=== PATIENT | female | born 1980 | race Caucasian/White ===

== ENCOUNTER 2017-09-08 15:40 | Inpatient (IN) | payer BC ==
[~2017-09-08] VITALS: Ht 167.6 cm; Wt 97.1 kg
[~2017-09-08 15:40] MED LIST: ADIPEX-P37.5 M1 PO
[2017-09-08 16:25] LABS: HEMATOCRIT 35.8 % (36.0-48.0); MCH 31.2 pg (26.0-34.0); MCHC 33.5 g/dL (31.0-37.0); MEAN PLATELET VOLUME 12.4 fL (7.4-10.4); RBC 3.85 10x6/uL (4.00-5.40); RDW 13.8 % (11.5-14.5); WBC 8.5 10x3/uL (4.8-10.8)
[2017-09-08 16:44] VITALS: BP 131/78; BMI 34.6
[2017-09-08 17:32] LABS: APPEARANCE HAZY (CLEAR); BACTERIA MODERATE /hpf (NONE SEEN); BILIRUBIN NEGATIVE (NEGATIVE); COLOR DK YELLOW (YELLOW); GLUCOSE NEGATIVE (NEGATIVE); KETONE LARGE mg/dL (NEGATIVE); MUCUS >1+ /lpf (NONE SEEN); NITRITE NEGATIVE (NEGATIVE); PROTEIN NEGATIVE (NEGATIVE); RED CELLS - URINE OCC /hpf (0-5); UROBILINOGEN NORMAL (NORMAL)
[2017-09-09 07:50] VITALS: BP 118/72
--- NOTE | 2017-09-09 07:50 | NUR ---
RECEIVED PT SITTING UP IN BED. AWAKE. AAO X4. VSS. HRRR WITHOUT AUDIBLE MURMUR. BBS CLEAR. BS X 4. ABDOMEN SOFT/NON-DISTENDED. FUNDUS FIRM AT U/U. RUBRA LOCHIA MOD AMT. NO CLOTS EXPRESSED. NEG HOMANS' SIGN. PPP. NO EDEMA NOTED TO BLE. SL TO LEFT WRIST. SITE CLEAR. PT DENIES PAIN OR NEEDS. SR UPX 2. CALL LIGHT IN REACH. REGULAR DIET SERVED.
--- NOTE | 2017-09-09 07:58 | NUR ---
800 ML OF BLOOD-TINGED URINE EMPTIED FROM SPECIPAN.
--- NOTE | 2017-09-09 09:45 | NUR ---
PT TRANSFERED VIA AMBULATORY TO ROOM 1273. PT TO BR TO VOID. SHARON ACTIVITY WELL.
[2017-09-09 10:34] VITALS: Ht 167.6 cm; Wt 97.1 kg
--- NOTE | 2017-09-09 11:01 | NUR ---
LE@8:25 Devora Bravo 09/09/17 S: Patient states, 'This is my 3rd baby, I did try before but things didn't go well. So I formula fed. I was able to feed baby earlier for a little bit, he does suck for a few minutes but then come off the breast, he just keeps doing this same process. " O: Patient sitting up in bed attempting to breastfeed infant in cradle position, sleeping at the breast. Offered suggestions on how to wake infant, observed patient attempting to stimulate to wake for feeding. Explained breastmilk composition and different position she may try to hold infant for feeding. Infant awake and alert, would attempt to latch but then would fall back asleep. Explained benefits of skin to skin to help promote . A: Patient attempting to breastfeed, visitors came in room, patient stopped trying to feed . CLC left room and will return. P: CLC will come back in room to help infant with latching after vistors leave. Second note.... LE: 9:15 S: Patient says," I think he would like to eat but he just sits in front the breast. He sucked for a few seconds then stopped. I'm ok with giving him formula and I can try later. I think once I get home and more comfortable things will get easier. Asked how much infant need of formula?'' O: Patient sitting up in bed, infant awake and alert FOB at bedside. Explained how to hold infant for feeding makes sure baby is turned tummy to tummy, nose opposite of nipple, gently support head and allow to self-latch. attempts to latch but wouldn't suck. attempted several time to latch but seems uninterested in eating. mouth lips would touch the breast then turn away. latched on the breast right at 9:26 in cradle position, round cheeks, mouth 140 degrees and full of breast, sucking in a rocking motion. Infant latched for minutes and came off the breast. doesn't appear interested in feeding. latched back on the left breast at 9:40, in cradle position, round cheeks, mouth 140 degrees and full of breast, sucking in a rocking motion, then stopped feeding after 2 minutes. Encouraged patient to continue to try and latch , she is doing a great job. It is normal for every infant to feed differently. Some babies latch immediately others take time. Baby tends to come to the breast but doesn't initiate immediately, this is normal. Recommend to try skin to skin as often as possible. This will help with infant wanting to nurse. Explained feeding cues. At patient request provided formula in crib. Patient attempts to feed infant from bottle, doesn't seem interested in eating and spits out the nipple. Patient states she will work on feeding . Please let us know if she we can be any help. Informed nursery nurse of patient question, nursery nurse went into room to visit with patient. A: Patient attempting to breastfeed, not interested in feeding, requested help. Patient requested to feed infant formula. P: For next feeding, contact nursery staff to get help with latching infant. Alem Anderson. CLC
[2017-09-09 11:59] VITALS: BP 114/58
--- NOTE | 2017-09-09 12:00 | NUR ---
VSS. PT SITTING UP IN BED. VISITS WITH FAMILY. C/O ABDOMINAL CRAMPING OF "5" ON 0-10 PAIN SCALE. NORCO 5/325 GIVEN PO ORDERED. PT INSTRUCTED ON MED. VERBALIZES UNDERSTANDING.
--- NOTE | 2017-09-09 12:50 | NUR ---
PT SITTING UP IN BED. VISITS WITH FAMILY. STATES NO C/O PAIN AT THIS TIME.
--- NOTE | 2017-09-09 15:51 | NUR ---
PT C/O ABDOMINAL CRAMPING OF "3" ON 0-10 PAIN SCALE. MOTRIN 600 MG GIVEN PO ORDERED. PT INSTRUCTED ON MED. VERBALIZES UNDERSTANDING.
--- NOTE | 2017-09-09 17:11 | NUR ---
PT C/O ABDOMINAL CRAMPING NOT RELIEVED BY IBUPROFEN. NORCO 5/325 GIVEN PO ORDERED.
--- NOTE | 2017-09-09 17:11 | NUR ---
SALINE LOCK DC'D WITH CATHELON INTACT. PRESSURE BANDAGE TO SITE. PT SHARON WELL.
--- NOTE | 2017-09-09 18:30 | NUR ---
PT SITTING UP IN BED. CARING FOR . STATES WILL SHOWER WHEN FINISHED WITH FEEDING INFANT. TOWELS PROVIDED. STATES PAIN RELIEVED BY PAIN MED.
--- NOTE | 2017-09-09 19:03 | NUR ---
REPORT GIVEN TO ON-COMING SHIFT.
--- NOTE | 2017-09-09 19:50 | NUR ---
THIS RN TO BEDSIDE FOR SHIFT ASSESSMENT. PT CURRENTLY FEEDING . WILL RETURN AFTER PT HAS FINISHED FEEDING. NO NEEDS VOICED AT THIS TIME.
--- NOTE | 2017-09-09 20:10 | NUR ---
THIS RN RETURNS TO BEDSIDE FOR SHIFT ASSESSMENT. PT CONTINUES TO ATTEMPT TO FEED INFANT. PT ASKED TO RING CALL LIGHT WHEN SHE IS READY FOR ASSESSMENT TO BE COMPLETED SO NOT TO CONTINUE TO BOTHER HER. PT IS AGREEABLE. NEEDS ASSESSED. PT REQUEST ADDITIONAL ICE WATER. FRESH ICE WATER SERVED IN [facility].
[2017-09-09 20:50] VITALS: BP 117/68
--- NOTE | 2017-09-09 20:52 | NUR ---
THIS RN RETURNS TO BEDSIDE FOR SHIFT ASSESSMENT. PT HAS FINISHED FEEDING INFANT. IS AGREEABLE TO ASSESSMENT AT THIS TIME. TRANSFERED TO CRIB AT BEDSIDE. BREATH SOUNDS CL/=, ABD SOFT, NON-DISTENDED, FUNDUS FIRM,MIDLINE, U/2. PT REPORTS SMALL LOCHIA W/OCC. SMALL BLOOD CLOTS NOTED. ABLE VOID W/OUT DIFFICULTY. PEDAL PULSES PRESENT X 2. MILD, NON-PITTING EDEMA NOTED TO LE'S W/GREATER AMOUNT NOTED TO RT ANKLE. PAIN AND NEEDS ASSESSED. PT REPORTS ABD CRAMPING 5/10. PAIN MEDICATION OFFERED. PT ACCEPTS. SEE EMAR FOR CHARTING. PT DENIES FURTHER NEEDS AT THIS TIME. SPOUSE RETURNS TO ROOM W/OLDER CHILD. SPRITE SERVED TO OLDER CHILDE. NO FURTHER NEEDS EXPRESSED AT THIS TIME. BED LOW, CALL LIGHT AND PHONE AT PT'S SIDE.
--- NOTE | 2017-09-09 21:44 | NUR ---
ROUNDS MADE FOR PAIN REASSESSMENT. PT SITTING UP IN BED W/INFANT UP IN ARMS. VISITORS AT BEDSIDE. PT RATES PAIN 0/10. DENIES FURTHER NEEDS AT THIS TIME.
[2017-09-09] MEDS ORDERED: PRENATABS RX TA1 TAB PO (22:16)
[2017-09-09] MEDS ORDERED: SLOW RELEASE I160 MG PO (22:17)
--- NOTE | 2017-09-09 22:18 | NUR ---
SIG OTHER TO NURSING STATION REQUESTING INFANT BE TRANSPORTED TO N. Radha JACOBSON RN NBN NURSE NOTIFIED. NBN NURSE TO BENJAMIN AT THIS TIME. INFANT TRANSPORTED TO N.
--- NOTE | 2017-09-09 22:25 | NUR ---
PT RINGS CALL LIGHT REQUESTING A BLANKET FOR SPOUSE. BLANKET PROVIDED. FRESH ICE WATER SERVED TO PT. PT REPORTS SHE AND SPOUSE ARE PLANNING TO LEAVE IN NURSERY FOR THE NIGHT SO THEY MAY GET SOME REST. NO FURTHER NEEDS VOICED AT THIS TIME.
--- NOTE | 2017-09-10 00:15 | NUR ---
ROUNDS MADE. PT LYING TO LEFT SIDE FACING AWAY FROM THE DOOR. RESP EVEN AND UNLABORED. PT LEFT UNDISTURBED AT THIS TIME.
--- NOTE | 2017-09-10 02:45 | NUR ---
ROUNDS MADE. PT RESTING TO RT SIDE W/EYES CLOSED. RESP EVEN, AUDIBLE AND UNLABORED. PT APPEARS TO BE SLEEPING. PT LEFT UNDISTURBED AT THIS TIME.
--- NOTE | 2017-09-10 04:30 | NUR ---
ROUNDS MADE. PT SITTING UP IN BED AWAKE WITH UP IN ARMS. PT'S PAIN AND NEEDS ASSESSED. PT DENIES PAIN OR NEEDS AT PRESENT. RATES PAIN 0//10.
[2017-09-10 06:13] LABS: RAPID PLASMA REAGIN Non Reactive (Non Reactive)
--- NOTE | 2017-09-10 06:34 | NUR ---
ROUNDS MADE. PT RESTING TO RT SIDE W/EYES CLOSED. RESP EVEN AND UNLABORED. IN CRIB AT BEDSIDE. PT LEFT UNDISTURBED AT THIS TIME.
--- NOTE | 2017-09-10 08:10 | NUR ---
DR ALEJANDRO VISITED PATIENT. ANTICIPATE DC HOME.
--- NOTE | 2017-09-10 08:15 | NUR ---
AMBULATED IN [facility] TO NURSERY. NO SPECIFIC REQUESTS AT THIS TIME.
--- NOTE | 2017-09-10 09:30 | NUR ---
UP AD KAREN. READY TO GO HOME. DESIRES TDAP PRIOR TO DC. SAYS SHE HAD FLU VACCINE IN CLINIC. VERBAL AND WRITTEN TDAP INFO GIVEN.
[2017-09-10] MEDS ORDERED: IBUPROFEN800 MG PO (11:02)
--- NOTE | 2017-09-10 11:09 | NUR ---
TDAP GIVEN IM RIGHT DELTOID WITHOUT DIFFICULTY. DC INSTRUCTIONS STARTED.
[2017-09-10 11:30] VITALS: BP 135/76
--- NOTE | 2017-09-10 11:36 | NUR ---
DC INSTRUCTIONS COMPLETED. QUESTIONS ANSWERED. VERBAL AND WRITTEN INFORMATION GIVEN. INFANT IN CARSEAT. DC'D VIA WHEELCHAIR TO CAR. HAS WRITTEN PRESCRIPTION. ALL BELONGINGS REMOVED FROM ROOM.
--- NOTE | 2017-09-13 08:12 | OP ---
PATIENT NAME: EFRAIN WONG MEDICAL RECORD: [id number] :82 LOCATION:[facility] ADMISSION DATE:09/08/17 SURGEON: PAPO SUMMERS MD DATE OF OPERATION: 09/09/2017 DELIVERY NOTE PREDELIVERY DIAGNOSES: 1. Premature rupture of membranes. 2. at 38 weeks and 5 days. POSTDELIVERY DIAGNOSES: 1. Premature rupture of membranes. 2. Mother delivered at 38 weeks and 6 days. PROCEDURE: Vaginal delivery. ATTENDING: Papo Summers MD FINDINGS: Viable male infant, MEHUL presentation. Apgars are 8 and 9, weight 7 pounds 4 ounces. The patient with periurethral laceration repaired with 4-0 chromic. Placenta spontaneous and intact. ESTIMATED BLOOD LOSS: 350 cc. DISPOSITION: Mother and are recovered in the room. TRANSINT:[id number] Voice Confirmation ID: [id number] DOCUMENT ID: [id number] PAPO SUMMERS MD at 0812 CC: [id number] DICTATION DATE: 09/09/17 0150 AIRLINE ATTENDANT: 09/09/17 1010 DIS IN 09/10/17 [facility] [address] [place] [address]
== END 2017-09-10 11:36 | disposition home or self-care (01) | DRG 775 ==
LOC: D.LD 15:40
PROVIDERS: ADMIT Obstetrics & Gynecology
PROC: 0UQMXZZ Repair Vulva, External Approach (ICD-10-PCS; principal; 2017-09-09)
PROC: 10E0XZZ Delivery of Products of Conception, External Approach (ICD-10-PCS; 2017-09-09)
DX: O42.92 Full-term premature rupture of membranes, unspecified as to length of time between rupture and onset of labor (principal); Z3A.38 38 weeks gestation of pregnancy; Z37.0 Single live birth; O71.82 Other specified trauma to perineum and vulva; Z87.891 Personal history of nicotine dependence

== ENCOUNTER 2017-09-18 11:35 | Inpatient (IN) | payer BC ==
[~2017-09-18] VITALS: Ht 167.6 cm; Wt 90.0 kg
[2017-09-18] VITALS (12 sets, daily range): BP systolic 104–131; BP diastolic 55–80; Ht 167.6 cm; Wt 90.0 kg
[~2017-09-18 11:35] MED LIST changes: +IBUPROFEN800 MG PO; +PRENATABS RX TA1 TAB PO; +SLOW RELEASE I160 MG PO
[2017-09-18 12:07] LABS: BASOPHILS 0.3 % (0-2); EOSINOPHILS 2.1 % (0-7); HEMATOCRIT 39.7 % (36.0-48.0); HEMOGLOBIN 13.2 g/dL (12-16); IMMATURE GRANULOCYTES 0.3 % (0-5); MCH 31.4 pg (26.0-34.0); MCHC 33.2 g/dL (31.0-37.0); MCV 94.5 fL (80.0-100.0); MEAN PLATELET VOLUME 10.7 fL (7.4-10.4); NEUTROPHILS 62.3 % (40-80); RDW 13.1 % (11.5-14.5); WBC 5.8 10x3/uL (4.8-10.8)
[2017-09-18 12:09] LABS: PLATELET COUNT 247 10x3/uL (130-400)
[2017-09-18 12:17] LABS: HCG SERUM POSITIVE (NEGATIVE)
[2017-09-18 12:28] LABS: INR 0.91 (0.85-1.17); PROTIME 11.9 SECONDS (11.6-15.0)
[2017-09-18 14:44] LABS: BASOPHILS 0.1 % (0-2); EOSINOPHILS 1.2 % (0-7); HEMOGLOBIN 11.7 g/dL (12-16); IMMATURE GRANULOCYTES 0.2 % (0-5); LYMPHOCYTES 17.1 % (15-50); MCH 31.5 pg (26.0-34.0); MCHC 33.4 g/dL (31.0-37.0); MCV 94.1 fL (80.0-100.0); MEAN PLATELET VOLUME 10.4 fL (7.4-10.4); MONOCYTES 4.8 % (2-11); NEUTROPHILS 76.6 % (40-80); PLATELET COUNT 198 10x3/uL (130-400); RBC 3.72 10x6/uL (4.00-5.40); WBC 9.7 10x3/uL (4.8-10.8)
[2017-09-18 15:12] LABS: CALC OSMOLALITY 281 mosm/kg (275-300); CALCIUM 8.4 mg/dL (8.5-10.1); CARBON DIOXIDE 26.8 mmol/L (21.0-32.0); CHLORIDE - SERUM 107 mmol/L (98-107); CREATININE - SERUM 0.6 mg/dL (0.6-1.3); GLUCOSE 81 mg/dL (74-106); HCG - QUANTITATIVE (MATERNAL) 86 mIU/mL; POTASSIUM - SERUM 3.7 mmol/L (3.5-5.1); SODIUM 142 mmol/L (136-145); UREA NITROGEN 13 mg/dL (7-18); eGFR NON AFRICAN AMERICAN > 90 mL/min (90-120)
[2017-09-18 20:27] LABS: BASOPHILS 0.1 % (0-2); EOSINOPHILS 0.1 % (0-7); HEMATOCRIT 34.4 % (36.0-48.0); HEMOGLOBIN 11.6 g/dL (12-16); IMMATURE GRANULOCYTES 0.3 % (0-5); LYMPHOCYTES 5.3 % (15-50); MCH 30.9 pg (26.0-34.0); MCHC 33.7 g/dL (31.0-37.0); MEAN PLATELET VOLUME 10.2 fL (7.4-10.4); NEUTROPHILS 93.2 % (40-80); PLATELET COUNT 165 10x3/uL (130-400); RBC 3.75 10x6/uL (4.00-5.40); RDW 13.7 % (11.5-14.5)
[2017-09-18 20:33] LABS: APTT 29.5 SECONDS (22.8-39.4); PROTIME 13.7 SECONDS (11.6-15.0)
[2017-09-18 20:37] LABS: INR 1.1 (0.85-1.17); MCV 91.7 fL (80.0-100.0); WBC 12.8 10x3/uL (4.8-10.8)
[2017-09-18 20:48] LABS: D-DIMER-QUANTITATIVE 19.65 ug/mLFEU (0.20-0.54)
[2017-09-19 04:00] VITALS: BP 87/36
[2017-09-19 05:00] VITALS: BP 88/42
[2017-09-19 05:38] VITALS: BP 89/48
[2017-09-19 06:03] LABS: BASOPHILS 0.1 % (0-2); EOSINOPHILS 0.2 % (0-7); HEMATOCRIT 26.6 % (36.0-48.0); HEMOGLOBIN 9.1 g/dL (12-16); IMMATURE GRANULOCYTES 0.2 % (0-5); LYMPHOCYTES 21.3 % (15-50); MCHC 34.2 g/dL (31.0-37.0); MCV 90.5 fL (80.0-100.0); MEAN PLATELET VOLUME 10.2 fL (7.4-10.4); MONOCYTES 6.2 % (2-11); PLATELET COUNT 175 10x3/uL (130-400); RBC 2.94 10x6/uL (4.00-5.40); RDW 14.2 % (11.5-14.5); WBC 9.7 10x3/uL (4.8-10.8)
[2017-09-19 07:06] LABS: ALKALINE PHOSPHATASE 71 U/L (46-116); ALT (SGPT) 16 U/L (10-68); BILIRUBIN - TOTAL 0.55 mg/dL (0.2-1.3); CALC OSMOLALITY 277 mosm/kg (275-300); CALCIUM 7.6 mg/dL (8.5-10.1); CARBON DIOXIDE 25.2 mmol/L (21.0-32.0); CHLORIDE - SERUM 108 mmol/L (98-107); CREATININE - SERUM 0.6 mg/dL (0.6-1.3); GLUCOSE 105 mg/dL (74-106); POTASSIUM - SERUM 3.6 mmol/L (3.5-5.1); PROTEIN - SERUM 4.6 g/dL (6.4-8.2); SODIUM 140 mmol/L (136-145); UREA NITROGEN 10 mg/dL (7-18); eGFR NON AFRICAN AMERICAN > 90 mL/min (90-120)
[2017-09-19 07:13] VITALS: BP 94/33
--- NOTE | 2017-09-19 07:58 | HP ---
PATIENT: EFRAIN WONG MEDICAL RECORD: [id number] ACCOUNT: [id number] LOCATION:D.MS [facility]220 : 82 ADMISSION DATE: 09/18/17 HISTORY AND PHYSICAL EXAMINATION CHIEF COMPLAINT: Heavy vaginal bleeding. HISTORY OF PRESENT ILLNESS: The patient is a 37-year-old G2, para 2, status post vaginal delivery approximately 10 days. The patient was recovering well until this morning when she began to have heavy vaginal bleeding greater than 1 pad an hour of bright red blood. The patient states that she has not had any temperatures or abnormal discharge. The patient reports minimal lochia prior to the incident this morning. At the time of presentation to the Emergency Room, she was still having heavy bleeding. PAST MEDICAL HISTORY: Folate and B12 deficiencies. PAST SURGICAL HISTORY: 1. Gastric bypass. 2. Tummy tuck. PAST OBSTETRICAL HISTORY: The patient has had 2 term vaginal deliveries. PAST GYNECOLOGIC HISTORY: The patient denies any abnormal blood, Pap smears or STDs. FAMILY HISTORY: Noncontributory. MEDICATIONS: 1. B12. 2. Folate ALLERGIES: No known drug allergies. SOCIAL HISTORY: The patient denies alcohol, drug or tobacco use. REVIEW OF SYSTEMS: CONSTITUTIONAL: The patient denies fatigue, weakness or fever. CENTRAL NERVOUS SYSTEM: The patient denies numbness. Has a headache. Denies mental status changes or visual changes. CARDIOVASCULAR: The patient denies chest pain, palpitations, orthopnea. INFECTIOUS DISEASE: The patient denies fever, chills, sweats or sore throat. GASTROINTESTINAL: The patient denies constipation, diarrhea, nausea or vomiting. GENITOURINARY: The patient denies dysuria, urgency or frequency. No vaginal discharge. HEMATOLOGIC: The patient denies epistaxis, hemoptysis, hematuria or GI bleeding. ENDOCRINE: The patient denies excessive thirst, sweating or tremor. INTEGUMENT: The patient denies rashes or easy bruising. PULMONARY: The patient denies shortness of breath or cough. MUSCULOSKELETAL: The patient denies joint pain, joint stiffness or muscle pains. PHYSICAL EXAMINATION: HISTORY AND PHYSICAL [id number] EFRAIN WONG VITAL SIGNS: See the nursing notes. GENERAL: This is a female in mild distress. EARS, NOSE, AND THROAT: Grossly within normal limits. HEAD AND NECK: Atraumatic, normocephalic. CARDIOVASCULAR: Normal rhythm. No murmur, gallops or rubs. LUNGS: Clear. No respiratory distress. ABDOMEN: Soft. The uterus is palpated just below the umbilicus. PELVIC: Speculum exam was deferred. Bimanual exam reveals an enlarged uterus to approximately 16-18 week size. The cervix is dilated and effaced with copious amounts of clots contained within the uterine cavity. EXTREMITIES: No clubbing, cyanosis or edema. NEUROLOGIC: Grossly within normal limits. LABORATORY DATA: Sodium of 142, potassium 3.7, chloride 107, carbon dioxide 26.8, BUN 13, creatinine 0.6, glucose of 81. H and H is 11.7 and 35.0, platelets 247. Ultrasound demonstrates a greater than a 5 cm collection of fluid inside the uterine cavity. Uterus measures 18 cm in length. No fluid in the cul-de-sac. No adnexal masses. IMPRESSION AND PLAN: Subinvolution of the uterus with hemorrhage. The patient has been consented for exam under anesthesia and curettage. The patient understands the risks and benefits of the procedure and the need for intervention at this time. TRANSINT:[id number] Voice Confirmation ID: [id number] DOCUMENT ID: [id number] BRI SUMMERS MD at 0758 CC: [id number] DICTATION DATE: 09/18/171748 [employer] COOK: 09/18/171916 ADM IN [facility] [address] [place] [address]
--- NOTE | 2017-09-19 07:59 | OP ---
PATIENT NAME: EFRAIN WONG MEDICAL RECORD: [id number] :82 LOCATION:D.MS [facility]220Sai ADMISSION DATE:09/18/17 SURGEON: PAPO SUMMERS MD DATE OF OPERATION: 09/18/2017 PREOPERATIVE DIAGNOSIS: Subinvolution of the uterus with delayed hemorrhage. POSTOPERATIVE DIAGNOSIS: Subinvolution of the uterus with delayed hemorrhage. PROCEDURES: 1. Exam under anesthesia. 2. Uterine curettage with evacuation. 3. Repair of cervical laceration. SURGEON: Papo Summers MD CONTRACTS ADVISOR: Sandeep Forrestre. ANESTHESIOLOGIST: Tony Dawson MD ANESTHESIA: General. FINDINGS: Uterus is enlarged, approximately 18-week size with copious amount of clots. The uterus fails to constrict and is boggy after initial removal of clot and debris. The vaginal vault was unremarkable. EBL was less than or equal to 1 liter. Urine output was approximately 100 to 150 cc cath urine. FLUIDS: 500 cc of lactated Ringer's with Pitocin. MEDICATIONS GIVEN INTRAOPERATIVELY: 1. Methergine 0.2 mg. 2. A 800 mcg of Cytotec. 3. Pitocin and lactated Ringer's. INDICATIONS: The patient is a 37-year-old female who was in the normal state of health who presented to the Emergency Room with heavy bleeding 10 days out from vaginal delivery. The patient is examined with an enlarged uterus, noted to have copious amounts of clots. The patient is consented for exam under anesthesia and any indicated procedure. DESCRIPTION OF PROCEDURE: After informed consent was assured, the patient was taken to the operating room, anesthetic was obtained. She was placed in Warren stirrups and prepped and draped in usual sterile fashion. A speculum was introduced to the vaginal vault. Anterior lip of the cervix was grasped and the uterus evacuated using a suction curette. Sharp curettage was performed until good cry was obtained throughout. The uterus was felt involuted after removal of all the clot and debris and brisk heavy bleeding was encountered. Again, the uterus was cleared and continues to bleed. Uterine massage felt to have desired effect and 0.2 mg of Methergine was given and Pitocin and lactated Ringer's requested. The patient continues to bleed and 800 mcg of Cytotec was placed per rectum and the uterus was now packed with Kerlix. The packing remains in place for 5 to 10 minutes and was removed. The patient began to bleed briskly again, and another 6-inch Kerlix was placed. This packing remains in utero and the OPERATIVE REPORT [id number] EFRAIN WONG L bleeding was noted to be minimal at this time. The patient will remain on antibiotics and be sent to the floor for expectant management. TRANSINT:[id number] Voice Confirmation ID: [id number] DOCUMENT ID: [id number] PAPO SUMMERS MD at 0759 CC: [id number] DICTATION DATE: 09/18/171806 GLAZE GRINDER: 09/18/172117 ADM IN [facility] [id number] [place] [address]
[2017-09-19 11:02] VITALS: BP 101/46
[2017-09-19] MEDS ORDERED: HYDROCODON-ACE1 EAC7 PO (11:46)
[2017-09-19] MEDS ORDERED: TRANEXAMIC ACI650 MG PO (11:47)
[2017-09-19] MEDS ORDERED: CYTOTEC200 MCG PO (11:49)
--- NOTE | 2017-10-06 08:10 | DS ---
PATIENT:EFRAIN WONG :82 MEDICAL RECORD: [id number] DISCHARGE SUMMARY ADMISSION DATE: 09/18/17 DISCHARGE DATE: 09/19/17 DATE OF ADMISSION: 09/18/2017. DATE OF DISCHARGE: 09/19/2017. ADMISSION DIAGNOSIS: Subinvolution of the uterus. DISCHARGE DIAGNOSES: Subinvolution of the uterus. PROCEDURE PERFORMED: 1. Dilation and curettage. 2. Uterine packing. HISTORY OF PRESENT ILLNESS AND DESCRIPTION OF PROCEDURE: Please see the dictated op note and history and physical in the chart. SUMMARY OF HOSPITALIZATION: The patient was admitted to the hospital for acute bleeding beginning on the . The patient underwent D&C and a ventral uterine packing to control massive hemorrhage. She received blood products and fluid management. The patient was sent to the floor and the uterine packing was slowly removed the morning of the . The patient was given Hemabate during this time as well as Cytotec. The patient was suffering from intense cramps as she received the Hemabate and Cytotec. The patient had resolution of this pain after removal of the packing. The patient remained afebrile and was receiving antibiotics while the packing was in place. The patient's discharge medications include Lysteda. The patient has been given strict bleeding precautions and has been asked to follow up in the clinic. Fusion plus has also been prescribed. TRANSINT:[id number] Voice Confirmation ID: [id number] DOCUMENT ID: [id number] BRI SUMMERS MD at 0810 CC: [id number] DICTATION DATE: 10/04/17 1634 RAMP AGENT: 10/05/17 0847 DIS IN 09/19/17 [facility] [address] [place] [address]
== END 2017-09-19 14:21 | disposition home or self-care (01) | DRG 769 ==
LOC: D.ER 11:35 → D.OPS 11:35 → EDSTATUS 15:59 → D.MS 17:56 → D.OPS 17:57 → D.SDCHOLD 17:57 → D.MS 19:55
PROVIDERS: Emergency Medicine; ADMIT Obstetrics & Gynecology
PROC: 0UC90ZZ Extirpation of Matter from Uterus, Open Approach (ICD-10-PCS; principal; 2017-09-18 16:00)
DX: O72.2 Delayed and secondary postpartum hemorrhage (principal); O90.89 Other complications of the puerperium, not elsewhere classified

== ENCOUNTER 2017-09-30 10:40 | Emergency (ER) | payer BC ==
[2017-09-18 18:38] VITALS: BMI 32.0
[~2017-09-30 10:40] MED LIST changes: +CYTOTEC200 MCG PO; +HYDROCODON-ACE1 EAC7 PO; +TRANEXAMIC ACI650 MG PO
[2017-09-30 11:27] LABS: BASOPHILS 0.2 % (0-2); EOSINOPHILS 2.5 % (0-7); HEMATOCRIT 32.7 % (36.0-48.0); HEMOGLOBIN 10.6 g/dL (12-16); IMMATURE GRANULOCYTES 0.5 % (0-5); LYMPHOCYTES 37.5 % (15-50); MCH 30.6 pg (26.0-34.0); MCHC 32.4 g/dL (31.0-37.0); MCV 94.5 fL (80.0-100.0); MEAN PLATELET VOLUME 9.5 fL (7.4-10.4); MONOCYTES 6.9 % (2-11); NEUTROPHILS 52.4 % (40-80); RBC 3.46 10x6/uL (4.00-5.40); RDW 14.4 % (11.5-14.5); WBC 5.5 10x3/uL (4.8-10.8)
[2017-09-30 11:39] LABS: PLATELET COUNT 329 10x3/uL (130-400)
[2017-09-30 11:54] LABS: HCG SERUM NEGATIVE (NEGATIVE)
== END 2017-09-30 13:07 | disposition home or self-care (01) ==
LOC: D.ER 10:40
PROVIDERS: Emergency Medicine
DX: N93.9 Abnormal uterine and vaginal bleeding, unspecified (principal)

== ENCOUNTER 2021-03-07 12:49 | Emergency (ER) | payer SELFPAY ==
[~2021-03-07] VITALS: Ht 167.6 cm; Wt 96.4 kg
[2021-03-07 12:56] VITALS: BP 156/83; Ht 167.6 cm; Wt 96.4 kg
[2021-03-07] MEDS ORDERED: PREDNISONE50 MG PO (15:38)
[2021-03-07] MEDS ORDERED: ZANAFLEX4 MG PO (15:38)
[2021-03-07] MEDS ORDERED: ARTHROTEC EC 71 EACH PO (15:38)
== END 2021-03-07 16:22 | disposition home or self-care (01) ==
LOC: D.ER 12:49
DX: M54.16 Radiculopathy, lumbar region (principal)